=== PATIENT | female | born 1985 | race Caucasian/White ===

== ENCOUNTER 2022-11-04 17:30 | Emergency (ER) | payer BC, SELFPAY ==
[2022-11-04 17:31] VITALS: BP 162/93; PULSE 86; RESP 14; TEMP 37.7; O2SAT 100; BMI 21.9
--- NOTE | 2022-11-04 17:47 | EKG12_ITS ---
Test Reason : Blood Pressure : / mmHG Vent. Rate : 097 BPM Atrial Rate : 097 BPM P-R Int : 136 ms QRS Dur : 090 ms QT Int : 374 ms P-R-T Axes : 065 060 040 degrees QTc Int : 474 ms Normal sinus rhythm Normal ECG Confirmed by NERY CHOUDHARY, LINDA ([id number]), editor dictionary CIARA OLSON ([id number]) on 12/14/2022 12:51:00 PM Referred By: SHANEL Confirmed By:ALMITA GABRIEL MD
--- NOTE | 2022-11-04 17:47 | EX.ED.DYSGE1 ---
HPI History of Present Illness Chief Complaint: Numb/Ting Narrative Narrative: 37-year-old female who denies significant past medical history presents with panic attack type symptoms. She states she has been under a lot of stress recently. Throughout her lifetime, she has had problems where she feels that everything is fine when something happens, and attempts to shrug it off. She had an incident involving her father on the and has been stressed about it ever since. Today, she felt a fast, pounding heart rate, and felt flushed. She also states that her bilateral neck and head felt numb and tingly. She states that her symptoms resolved, but then came back. She called her friend who helped bring her in via EMS. She denies any suicidal ideation, no hallucinations. She was concerned because she felt her fast, pounding heart rate. The last time this happened, she states that it lasted approximately 30 minutes and resolved. She was at home alone and became very frightened. Her was not at home which is why she called her friend, and told him to call the squad to bring her in for evaluation. PFSH [facility] Home Medications hydroxyzine pamoate 25 mg capsule (Vistaril) 25 mg PO TID PRN anxiety #20 caps 11/04/22 [Rx Last Taken Unknown] Allergy/AdvReac Type Severity Reaction Status Date / Time prednisone Allergy Intermediate Rash Verified 11/04/22 17:37 Social History Smoking Status: Current every day smoker tobacco type: cigarettes ROS ROS ED ROS Narrative Constitutional: No fever, no chills. HEENT: No sore throat. No neck pain. No loss of vision. No rhinorrhea. Cardiovascular: No chest pain. Positive palpitations. No pedal edema. Respiratory: No cough, no shortness of breath. Abdominal: No abdominal pain. No nausea. No vomiting. Genitourinary: No dysuria. No hematuria. Musculoskeletal: No myalgias. No arthralgias. Neurologic: No headaches. No dizziness. No lightheadedness. Paresthesias of bilateral neck and face. Skin: No rash. No change in color. Psychiatric: No depression. No anxiety. EXAM Physical Exam Const Vital Signs: 11/04/22 17:31 11/04/22 19:31 11/04/22 20:00 Temperature 99.8 F H Temperature Source Oral Pulse Rate 86 76 90 Respiratory Rate 14 18 19 H Blood Pressure 162/93 H 142/95 H 146/95 H Blood Pressure Mean 116 110 112 Pulse Ox 100 98 Oxygen Delivery Method Room Air Room Air Room Air MDM MDM MDM Narrative Medical decision making narrative: Her symptoms do sound more like panic attack and anxiety. I am not concerned for stroke as her facial numbness is bilateral. I do not feel CT of the brain is indicated. Comprehensive work-up was pursued to look for electrolyte abnormality given her palpitations. She is on a cardiac cath technologist and is no longer tachycardic. EKG was obtained and interpreted by myself independently as normal sinus rhythm at 97 bpm without ectopy or acute ST changes. No STEMI. She was administered Ativan 0.5 mg intravenously to help with her anxiety. EKG was obtained and interpreted by myself independently as normal sinus rhythm at 97 bpm without ectopy or acute ST changes. No STEMI. Her blood pressure has come down to 146/95 without intervention. I reviewed her laboratory work from today and she has a normal white count of 7.4, hemoglobin normal at 13.3, hematocrit normal at 38.0, platelet count also normal at 295. While sodium is slightly low at 134, I feel this is nonspecific, potassium normal at 3.8, BUN of 18 and creatinine 0.74. Glucose is appropriately elevated at 103. Lactic acid is normal at 1.2 and I have low suspicion for any seizure. Initial high-sensitivity troponin is normal at 14. Repeat is normal at 20 for a delta troponin of less than 7. I do not feel that she requires observation at this time. Serum was reviewed and is negative. Additionally urinalysis is negative for infection I do not feel antibiotics are indicated. After her Ativan she states she feels more calm. Once again I feel that her symptoms are most likely related to stress and anxiety, similar to a panic attack. I do not feel that she requires observation. She will follow-up with her primary care provider and I wrote her prescription for Vistaril to take for anxiety as she was told benzodiazepines need to be titrated by her primary care provider or psychiatrist. She was also referred to psychiatry. I do not feel that she requires emergent psychiatric admission. Her is now at the bedside along with her mother. I feel she be discharged safely home with follow-up. Return instructions were reviewed. Disposition is discharged home in stable condition. History & Record Review Discussion w/independent historian: Patient and Friend Additional record(s) reviewed:: No prior records Lab Data Attestation: I reviewed the patient's lab results. Labs: Laboratory Results - last 24 hr 11/04/22 11/04/22 11/04/22 18:03 18:18 20:17 WBC 7.4 RBC 3.88 L Hgb 13.3 Hct 38.0 MCV 97.9 MCH 34.3 H MCHC 35.0 RDW Std Deviation 43.3 RDW Coeff of Shayla 11.9 Plt Count 295 MPV 8.7 Immature Gran % (Auto) 0.300 Neut % (Auto) 61.4 Lymph % (Auto) 23.4 [place] % (Auto) 14.1 H Eos % (Auto) 0.3 Baso % (Auto) 0.5 Absolute Neuts (auto) 4.6 Absolute Lymphs (auto) 1.73 Nucleated RBC % 0 Sodium 134 L Potassium 3.8 Chloride 102 Carbon Dioxide 21.0 Anion Gap 11 BUN 18 Creatinine 0.72 Estim Creat Clear Calc 87.64 Est GFR (MDRD) Af Amer 117 Est GFR (MDRD) Non-Af 97 BUN/Creatinine Ratio 25.1 H Glucose 103 Lactic Acid 1.2 Calcium 9.3 Total Bilirubin 0.50 AST 31 ALT 34 Alkaline Phosphatase 56 Troponin I High Sens 14 20 Total Protein 7.4 Albumin 3.8 Globulin 3.6 Albumin/Globulin Ratio 1.1 Serum , Qual NEGATIVE Urine Color Yellow Urine Clarity Clear Urine pH 5.0 Ur Specific Holcomb 1.015 Urine Protein Negative Urine Glucose (UA) Normal Urine Ketones 15 H Urine Occult Blood Negative Urine Nitrite Negative Urine Bilirubin Negative Urine Urobilinogen Normal Ur Leukocyte Esterase Negative Urine RBC 0 SEEN Urine WBC 0 SEEN Ur Squamous Epith Cells 0 SEEN Urine Bacteria 0 SEEN Urine Mucus 0 SEEN Radiography Diagnostic Testing: Clinical Impression(s) from Imaging Studies Chest X-Ray 11/04/22 18:02 IMPRESSION: No radiographic evidence of acute cardiopulmonary disease. Electronically Signed: Jeff Pate MD at 18:42 EDT Reading Location ID and State: [facility] / [place] Tel , Service support , Discharge Plan Triage Chief Complaint: Numb/Ting ED Provider: Mat Gonzales Dx/Rx/DC Orders Clinical Impression: Palpitations, Paresthesia, Anxiety, Panic attack Instructions: ED Anxiety Reaction, ED Palpitations, ED Panic Attack, ED Paraesthesias Prescriptions: New hydroxyzine pamoate [Vistaril] 25 mg capsule 25 mg PO TID PRN (Reason: anxiety) Qty: 20 0RF Stand Alone Forms: ED Work / School Excuse Primary Care Provider: Care Physician,No Primary Referrals: Crow Ayon DO [Med Staff - [employer]pler] - As soon as possible Care Physician,No Primary [Primary Care Provider] - Activity Restrictions/Additional Instructions: Follow-up with your primary care provider soon as possible. You may also set an appointment with psychiatry for soon as possible regarding your anxiety and panic attacks, and coping mechanisms for stress. Disposition Disposition: Home, Self Care
--- NOTE | 2022-11-04 18:02 | RAD_ITS ---
INDICATION: tachycardia EXAMINATION/TECHNIQUE: X-RAY - portable upright AP chest x-ray COMPARISON: None. FINDINGS: LINES/DEVICES: None. LUNGS: No consolidation, edema or effusion. No pneumothorax. MEDIASTINUM AND CARDIOVASCULAR STRUCTURES: Cardiac silhouette not enlarged. Central airways and mediastinal contour are unremarkable. BONES AND SOFT TISSUES: Unremarkable. RAD/Chest 1 View (Portable) IMPRESSION: No radiographic evidence of acute cardiopulmonary disease. Electronically Signed: Jeff Pate MD at 18:42 EDT ,
[2022-11-04 18:17] LABS: Absolute Lymphocyte Count 1.73 X10^3/uL (0.83-4.51); Absolute Neutrophil Count 4.6 X10^3/uL (2.0-7.7); Basophil# 0.04 X10^3/uL; Basophil% 0.5 % (0-1); Eosinophil# 0.02 X10^3/uL; Eosinophils% 0.3 % (0-5); Hemoglobin 13.3 g/dL (12.0-15.0); Lymphocyte # 1.73 X10^3/ul (0.83-4.51); Lymphocyte % 23.4 % (19-41); Mean Corpuscular Hgb 34.3 pg (27.0-32.0); Mean Corpuscular Volume 97.9 fL (81-99); Mean Platelet Vol. 8.7 fl (6.2-12.0); Monocyte# 1.04 X10^3/uL; Monocyte% 14.1 % (0-10); NRBC Flagged by Analyzer 0 % (0-5); Neutrophil # 4.55 X10^3/uL (2.7-7.7); Neutrophil % 61.4 % (47-70); Platelet Count 295 K/mm3 (150-450); RBC Distribution Width CV 11.9 % (11.6-14.6); RBC Distribution Width SD 43.3 fl (35.1-43.9); Red Blood Count 3.88 M/mm3 (4.2-5.4); White Blood Count 7.4 K/mm3 (4.4-11.0)
[2022-11-04 18:27] LABS: Bacteria 0 SEEN /hpf (None Seen); Mucous, Urine 0 SEEN /hpf (<or=2+); Red Blood Cells-Urine 0 SEEN /hpf (0-5); Squamous Epithelial Cells - UA 0 SEEN /hpf (5-10); White Blood Cells 0 SEEN /hpf (0-5)
[2022-11-04 18:28] LABS: Internal QC Validated? YES +Cl - CLEAR BKGD; Pregnancy, Serum, hCG Quali. NEGATIVE Negative
[2022-11-04 18:34] LABS: Lactic Acid 1.2 mmol/L (0.4-1.9)
[2022-11-04 18:36] LABS: ALB/GLOB Ratio 1.1 RATIO (0.9-2.4); AST(SGOT) 31 U/L (15-37); Alanine Aminotransfer ALT/SGPT 34 U/L (13-56); Albumin, Serum 3.8 g/dL (3.2-5.0); Alkaline Phosphatase 56 U/L (45-117); Anion Gap 11 (5-15); BUN 18 mg/dL (7-18); BUN/Creat Ratio 25.1 RATIO (10-20); Calcium,Total 9.3 mg/dL (8.5-10.1); Chloride 102 mmol/L (98-107); Creatinine, Serum 0.72 mg/dL (0.55-1.02); EST Glomerular Filtration Rate 97 mL/min (>60); Est Glom Filt Rate - Afr Amer 117 mL/min (>60); Estimated Creatinine Clearance 87.64 ml/min; Globulin 3.6 g/dL (2.2-4.2); Glucose 103 mg/dL (74-106); Potassium 3.8 mmol/L (3.5-5.1); Protein, Total 7.4 g/dL (6.4-8.2); Sodium Level 134 mmol/L (136-145); Troponin-I HS (w/2H Reflex) 14 pg/mL (3.0-54.0)
[2022-11-04 18:39] LABS: Color, Urine Yellow (Yellow); Glucose, Dipstick Normal (Normal); Ketone-Dipstick 15 mg/dl (Negative); Leukocyte Esterase-Dipstick Negative /ul (Negative); Nitrite-Dipstick Negative (Negative); Occult Blood-Urine Negative /ul (Negative); Protein-Dipstick Negative (Negative); Specific Gravity, Urine 1.015 (1.002-1.030); Urine Bilirubin Dipstick Negative (Negative); Urine Clarity Clear (Clear); Urine Urobilinogen Normal (Normal)
[2022-11-04] MEDS: LORazepam 2 MG/ML Syringe 0.5 MG IV (19:01)
[2022-11-04 19:31] VITALS: BP 142/95; PULSE 76; RESP 18; O2SAT 98
[2022-11-04 20:00] VITALS: BP 146/95; PULSE 90; RESP 19
[2022-11-04 20:09] LABS: Reflex Troponin-HS? (from REC) Y
[2022-11-04 20:53] LABS: Troponin-I HS 20 pg/mL (3.0-54.0)
[2022-11-04 21:45] VITALS: RESP 16
== END 2022-11-04 22:45 | disposition home or self-care (01) ==
PROVIDERS: Emergency Provider Emergency Medicine; Visit Provider Emergency Medicine
DX: R00.2 Palpitations (principal); F41.0 Panic disorder [episodic paroxysmal anxiety]; R20.2 Paresthesia of skin; F17.210 Nicotine dependence, cigarettes, uncomplicated
CPT/HCPCS: 71045; 80053; 81001; 83605; 84484; 84703; 85025; 93005; 96374; 99285; A4216